=== PATIENT | male | born 1965 | race African-American/Black ===

== ENCOUNTER → 2017-12-06 | Outpatient (CLI) | payer BC ==
[~2017-12-06] VITALS: Ht 186.7 cm; Wt 154.5 kg
[~2017-12-06] MED LIST: CARVEDILOL12.5 MG PO; COUMADIN10 MG PO; ELIQUIS5 MG PO; FORTAMET1000 M1 PO; GLIPIZIDE10 MG PO; JANUVIA100 MG PO; LEVEMIR FL100 UNIT/1 SC; LISINOPRIL20 MG PO; NATURAL VITA200 UNIT; NEURONTIN300 MG PO; NORVASC10 MG PO; POTASSIUM GLUCO2 MEQ PO; PRAVACHOL40 MG PO
[2017-12-06 08:19] LABS: CHLORIDE 101 MEQ/L (99-109); CREATININE 0.8 MG/DL (0.6-1.3); GFR ESTIMATE (CALCULATED) > 59 mL/min/ (58.99-99999); GLUCOSE 193 mg/dL (70-99); POTASSIUM 4.1 MEQ/L (3.7-5.4); SODIUM 134 MEQ/L (136-147); UREA NITROGEN (BUN) 11 mg/dL (9-23)
== END | disposition home or self-care (01) ==
LOC: AMB 06:58
PROVIDERS: Anesthesiology; Internal Medicine
DX: Z12.11 Encounter for screening for malignant neoplasm of colon (principal); K57.30 Diverticulosis of large intestine without perforation or abscess without bleeding; K62.1 Rectal polyp; D12.5 Benign neoplasm of sigmoid colon; I48.91 Unspecified atrial fibrillation; E78.5 Hyperlipidemia, unspecified; I10 Essential (primary) hypertension; E11.9 Type 2 diabetes mellitus without complications; Z79.84 Long term (current) use of oral hypoglycemic drugs; Z79.01 Long term (current) use of anticoagulants; E66.01 Morbid (severe) obesity due to excess calories; Z68.42 Body mass index [BMI] 45.0-49.9, adult; Z83.3 Family history of diabetes mellitus; Z82.49 Family history of ischemic heart disease and other diseases of the circulatory system
CPT/HCPCS: 80048; 82948; 88305; 93005

== ENCOUNTER → 2017-12-31 | Outpatient (CLI) | payer BC | END | disposition home or self-care (01) | LOC: NUC 07:30 | DX: I51.89 Other ill-defined heart diseases (principal); R06.00 Dyspnea, unspecified; I10 Essential (primary) hypertension | CPT/HCPCS: 78452; 78999; 93017; A9500; J2785 ==